=== PATIENT | male | born 1985 | race Caucasian/White ===

== ENCOUNTER 2021-05-27 09:35 | Emergency (ER) | payer OTHER, SELFPAY ==
--- NOTE | 2021-05-27 10:56 | PC.NURSE ---
pt left during registration since he had some type of problem with his insurance. pt was not seen, didnt complete registation, so all information was all in the computer was entered for this visit.
== END 2021-05-27 10:56 | disposition left against medical advice (07) ==
PROVIDERS: Emergency Provider Internal Medicine Hematology & Oncology
DX: Z53.21 Procedure and treatment not carried out due to patient leaving prior to being seen by health care provider (principal)
CPT/HCPCS: 99199